=== PATIENT | female | born 1960 | race Caucasian/White ===

== ENCOUNTER 2018-03-25 09:03 | Outpatient (CLI) | payer OTHER ==
[2015-04-23 12:34] VITALS: BP 139/54
[2018-03-25 09:50] LABS: eGFR (Non-African) > 60
== END 2018-03-25 09:05 ==
LOC: LAB 09:03
PROVIDERS: ATTEND Nurse Practitioner Family
DX: E87.6 Hypokalemia (principal)
CPT/HCPCS: 36415; 80053